=== PATIENT | male | born 1985 | race Caucasian/White ===

== ENCOUNTER 2020-07-05 09:09 | Emergency (ER) | payer OTHER ==
[~2020-07-05] VITALS: Ht 175.3 cm; Wt 98.6 kg
[~2020-07-05 09:09] MED LIST: ANTIVERT25 MG PO; CELEXA20 MG PO; CELEXA40 MG PO; CIPRO500 MG PO; CRUTCH1 EACH; CYCLOBENZAPRINE10 MG PO; CYMBALTA60 MG PO; DOXYCYCLINE HY100 MG PO; FLEXERIL10 MG PO; HYDROCODON-ACE1 EAC8 PO; MULTIVITAMINS1 EAC7 PO; NAPROSYN500 MG PO; NEURONTIN100 MG PO; NORCO 5-325 TA1 EACH PO; OMEGA 3 FISH O1 EACH PO; PROMETHAZINE HC25 M1 PO; TRAMADOL HCL50 MG PO; TRANSDERM-SCOP1 EA TD; VITAMIN E100 UNI2 PO
[2020-07-05] MEDS ORDERED: IBU800 MG PO (10:27)
[2020-07-05] MEDS ORDERED: CEPHALEXIN500 M1 PO (10:27)
== END 2020-07-05 10:36 | disposition home or self-care (01) ==
LOC: ED 09:09
DX: S60.222A Contusion of left hand, initial encounter (principal); L03.114 Cellulitis of left upper limb; F17.200 Nicotine dependence, unspecified, uncomplicated; Z88.8 Allergy status to other drugs, medicaments and biological substances; Z88.5 Allergy status to narcotic agent; Z91.030 Bee allergy status; W26.8XXA Contact with other sharp object(s), not elsewhere classified, initial encounter
CPT/HCPCS: 73130; 99283-25

== ENCOUNTER 2020-10-05 11:50 | Emergency (ER) | payer OTHER ==
[~2020-10-05] VITALS: Ht 175.3 cm; Wt 93.9 kg
[~2020-10-05 11:50] MED LIST changes: +CEPHALEXIN500 M1 PO; +IBU800 MG PO
== END 2020-10-05 15:05 | disposition short-term general hospital (02) ==
LOC: ED 11:50
DX: M54.5 Low back pain (principal); R32 Unspecified urinary incontinence; Z20.822 Contact with and (suspected) exposure to COVID-19; Z87.891 Personal history of nicotine dependence; Z91.030 Bee allergy status; Z88.8 Allergy status to other drugs, medicaments and biological substances; Z88.5 Allergy status to narcotic agent
CPT/HCPCS: 99284; C9803; U0003

== ENCOUNTER 2020-11-21 19:48 | Emergency (ER) | payer OTHER ==
[~2020-11-21] VITALS: Ht 175.3 cm; Wt 90.7 kg
[2020-11-21] MEDS ORDERED: EPIN0.3P IM (21:15)
[2020-11-21] MEDS ORDERED: VENTOLIN HFA18 GM INH (21:15)
[2020-11-21] MEDS ORDERED: PSEUDOEPHEDRINE30 MG PO (21:16)
[2020-11-21] MEDS ORDERED: DICLOFENAC POTA50 MG PO (21:16)
[2020-11-22] MEDS ORDERED: PREDNISONE50 MG PO (00:21)
[2020-11-22] MEDS ORDERED: PEPCID20 MG PO (00:21)
[2020-11-22] MEDS ORDERED: BENADRYL25 MG PO (00:21)
[2020-11-22] MEDS ORDERED: EPIPEN 2-P0.3 MG/0.3 IM (00:21)
== END 2020-11-22 00:29 | disposition home or self-care (01) ==
LOC: ED 19:48
DX: T63.441A Toxic effect of venom of bees, accidental (unintentional), initial encounter (principal); T78.2XXA Anaphylactic shock, unspecified, initial encounter; F17.200 Nicotine dependence, unspecified, uncomplicated; Z88.5 Allergy status to narcotic agent; Z88.8 Allergy status to other drugs, medicaments and biological substances; Z91.030 Bee allergy status; Z79.899 Other long term (current) drug therapy
CPT/HCPCS: 71045; 96374; 96375; 99283-25; J0171; J2930; J7121

== ENCOUNTER 2021-02-11 11:04 | Emergency (ER) | payer OTHER ==
[~2021-02-11] VITALS: Ht 170.2 cm; Wt 95.2 kg
[~2021-02-11 11:04] MED LIST changes: +BENADRYL25 MG PO; +DICLOFENAC POTA50 MG PO; +EPIN0.3P IM; +EPIPEN 2-P0.3 MG/0.3 IM; +PEPCID20 MG PO; +PREDNISONE50 MG PO; +PSEUDOEPHEDRINE30 MG PO; +VENTOLIN HFA18 GM INH
[2021-02-11] MEDS ORDERED: AMOXICILLIN500 MG PO (12:29)
[2021-02-11] MEDS ORDERED: VENTOLIN HFA18 GM INH (12:29)
== END 2021-02-11 12:43 | disposition home or self-care (01) ==
LOC: ED 11:04
DX: H66.92 Otitis media, unspecified, left ear (principal); K08.89 Other specified disorders of teeth and supporting structures; F17.200 Nicotine dependence, unspecified, uncomplicated; Z88.8 Allergy status to other drugs, medicaments and biological substances; Z91.038 Other insect allergy status; Z88.1 Allergy status to other antibiotic agents; Z79.899 Other long term (current) drug therapy
CPT/HCPCS: 99282

== ENCOUNTER 2021-04-01 08:12 | Emergency (ER) | payer OTHER ==
[~2021-04-01] VITALS: Ht 170.2 cm; Wt 95.2 kg
[~2021-04-01 08:12] MED LIST changes: +AMOXICILLIN500 MG PO
== END 2021-04-01 10:16 | disposition home or self-care (01) ==
LOC: ED 08:12
DX: S92.512A Displaced fracture of proximal phalanx of left lesser toe(s), initial encounter for closed fracture (principal); S46.912A Strain of unspecified muscle, fascia and tendon at shoulder and upper arm level, left arm, initial encounter; W10.9XXA Fall (on) (from) unspecified stairs and steps, initial encounter; F17.200 Nicotine dependence, unspecified, uncomplicated; Z91.030 Bee allergy status; Z88.5 Allergy status to narcotic agent; Z88.8 Allergy status to other drugs, medicaments and biological substances; Z88.1 Allergy status to other antibiotic agents; Z79.899 Other long term (current) drug therapy; Z79.52 Long term (current) use of systemic steroids
CPT/HCPCS: 73030; 73630; 99283-25

== ENCOUNTER 2021-07-01 08:50 | Emergency (ER) | payer OTHER ==
[~2021-07-01] VITALS: Ht 170.2 cm; Wt 121.6 kg
[2021-07-01] MEDS ORDERED: IBU600 MG PO (10:23)
== END 2021-07-01 10:40 | disposition home or self-care (01) ==
LOC: ED 08:50
DX: S83.91XA Sprain of unspecified site of right knee, initial encounter (principal); F17.200 Nicotine dependence, unspecified, uncomplicated; Z88.8 Allergy status to other drugs, medicaments and biological substances; Z88.1 Allergy status to other antibiotic agents; Z88.5 Allergy status to narcotic agent; Z91.030 Bee allergy status; Z79.52 Long term (current) use of systemic steroids; Z79.899 Other long term (current) drug therapy; Z91.018 Allergy to other foods; X50.1XXA Overexertion from prolonged static or awkward postures, initial encounter; Y99.0 Civilian activity done for income or pay
CPT/HCPCS: 73560; 99283-25

== ENCOUNTER 2021-07-04 12:53 | Emergency (ER) | payer OTHER ==
[~2021-07-04] VITALS: Ht 170.2 cm; Wt 121.6 kg
[~2021-07-04 12:53] MED LIST changes: +IBU600 MG PO
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
[2021-07-04] MEDS ORDERED: IBUPROFEN600 MG PO (13:51)
[2021-07-04] MEDS ORDERED: PRAZOSIN HCL2 MG PO (13:51)
== END 2021-07-04 15:57 | disposition home or self-care (01) ==
LOC: ED 12:53
DX: M23.91 Unspecified internal derangement of right knee (principal); F17.200 Nicotine dependence, unspecified, uncomplicated; Z88.5 Allergy status to narcotic agent; Z88.8 Allergy status to other drugs, medicaments and biological substances; Z88.1 Allergy status to other antibiotic agents; Z91.030 Bee allergy status; Z79.899 Other long term (current) drug therapy; Z79.52 Long term (current) use of systemic steroids
CPT/HCPCS: 99283

== ENCOUNTER 2021-12-20 10:57 | Emergency (ER) | payer OTHER ==
[~2021-12-20] VITALS: Ht 170.2 cm; Wt 110.7 kg
[~2021-12-20 10:57] MED LIST changes: +IBUPROFEN600 MG PO; +PRAZOSIN HCL2 MG PO
[2021-12-21] MEDS ORDERED: HYDROCODON-ACE1 EA11 PO (14:50)
== END 2021-12-20 12:55 | disposition home or self-care (01) ==
LOC: ED 10:57
DX: S13.9XXA Sprain of joints and ligaments of unspecified parts of neck, initial encounter (principal); S23.3XXA Sprain of ligaments of thoracic spine, initial encounter; T67.9XXA Effect of heat and light, unspecified, initial encounter; W18.30XA Fall on same level, unspecified, initial encounter; F17.200 Nicotine dependence, unspecified, uncomplicated; Z88.8 Allergy status to other drugs, medicaments and biological substances; Z88.5 Allergy status to narcotic agent; Z88.1 Allergy status to other antibiotic agents; Z91.030 Bee allergy status; Z79.899 Other long term (current) drug therapy
CPT/HCPCS: 99283

== ENCOUNTER 2021-12-21 13:17 | Emergency (ER) | payer OTHER ==
[~2021-12-21] VITALS: Ht 170.2 cm; Wt 109.8 kg
--- OUTSIDE RECORDS SUMMARY | 2021-12-21 13:24 | XMS ---
PreManage Notification: ELVA LAI Security Pharmacy Director Events No recent Security Events currently on file CRITERIA MET - [facility] - 2 Visits in 30 Days CARE PROVIDERS Claudia CrowderP-C Nurse Practitioner: Current PHONE: [phone] CARMEN ALEGRE Nurse Practitioner: 05/30/2019-Current PHONE: [phone] Dottie Holley Community Health Worker 06/16/2019-Current PHONE: [phone] Ramez has no Care Guidelines for this patient. E.D. VISIT COUNT (12 MO.) [address] [facility] TOTAL 6 NOTE: Visits indicate total known visits. ED/UCC VISIT TRACKING (12 MO.) 12/21/2021 13:18 [facility] [place] TYPE: Emergency COMPLAINT: - SKIN PROBLEM 12/20/2021 11:00 [facility] [place] TYPE: Emergency COMPLAINT: - FALL 07/04/2021 12:54 [facility] [place] TYPE: Emergency COMPLAINT: - R KNEE PAIN DIAGNOSES: - Bee allergy status - Other emergency services director (current) drug therapy - Nicotine dependence, unspecified, uncomplicated - Pain in right knee - Unspecified internal derangement of right knee - Allergy status to narcotic agent - retirement (current) use of systemic steroids - Allergy status to other antibiotic agents - Allergy status to other drugs, medicaments and biological substances 07/01/2021 08:51 [facility] [place] TYPE: Emergency COMPLAINT: - R KNEE INJURY DIAGNOSES: - Allergy status to narcotic agent - Allergy status to other drugs, medicaments and biological substances - Allergy status to other antibiotic agents - Sprain of unspecified site of right knee, initial encounter - Nicotine dependence, unspecified, uncomplicated - roll finisher (current) use of systemic steroids - Other alf (current) drug therapy - Overexertion from prolonged [...] toe(s), initial encounter for closed fracture - roll finisher (current) use of systemic steroids - Bee allergy status - Allergy status to other antibiotic agents - Other alf (current) drug therapy - Nicotine dependence, unspecified, uncomplicated - Allergy status to narcotic agent - Fall (on) (from) unspecified stairs and steps, initial encounter - Allergy status to other drugs, medicaments and biological substances - Strain of unspecified muscle, fascia and tendon at shoulder and upper arm level, left arm, initial encounter 02/11/2021 11:05 [facility] [place] TYPE: Emergency COMPLAINT: - L EAR PAIN DIAGNOSES: - Allergy status to other antibiotic agents - Otalgia, left ear - Other specified disorders of teeth and supporting structures - Allergy to other foods - roll finisher (current) use of systemic steroids - Allergy status to narcotic agent - Nicotine dependence, unspecified, uncomplicated - Other alf (current) drug therapy - Allergy status to other drugs, medicaments and biological substances - Other insect allergy status - Otitis media, unspecified, left ear INPATIENT VISIT TRACKING (12 MO.) No inpatient visits to display in this time frame [id number]
[2021-12-21] MEDS ORDERED: HYDROCODON-ACE1 EA11 PO (14:50)
== END 2021-12-21 15:25 | disposition home or self-care (01) ==
LOC: ED 13:17
DX: T20.27XA Burn of second degree of neck, initial encounter (principal); T20.20XA Burn of second degree of head, face, and neck, unspecified site, initial encounter; W40.1XXA Explosion of explosive gases, initial encounter; F17.200 Nicotine dependence, unspecified, uncomplicated; Z88.6 Allergy status to analgesic agent; Z88.4 Allergy status to anesthetic agent; Z88.1 Allergy status to other antibiotic agents; Z91.030 Bee allergy status; Z88.8 Allergy status to other drugs, medicaments and biological substances; Z91.018 Allergy to other foods
CPT/HCPCS: A9270

== ENCOUNTER 2022-04-10 17:02 | Emergency (ER) | payer OTHER ==
[~2022-04-10] VITALS: Ht 170.2 cm; Wt 97.8 kg
[~2022-04-10 17:02] MED LIST changes: +HYDROCODON-ACE1 EA11 PO
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
[2022-04-10] MEDS ORDERED: PANTOPRAZOLE SO20 MG PO (18:49)
[2022-04-10] MEDS ORDERED: PRAZOSIN HCL2 MG PO (19:47)
[2022-04-10] MEDS ORDERED: REXULTI4 MG PO (19:47)
== END 2022-04-10 20:00 | disposition home or self-care (01) ==
LOC: ED 17:02
DX: Z76.0 Encounter for issue of repeat prescription (principal); F41.9 Anxiety disorder, unspecified; F31.9 Bipolar disorder, unspecified; F43.10 Post-traumatic stress disorder, unspecified; F17.200 Nicotine dependence, unspecified, uncomplicated; Z91.030 Bee allergy status; Z88.5 Allergy status to narcotic agent; Z88.8 Allergy status to other drugs, medicaments and biological substances; Z88.1 Allergy status to other antibiotic agents; Z79.899 Other long term (current) drug therapy
CPT/HCPCS: 99281

== ENCOUNTER 2022-07-02 06:53 | Emergency (ER) | payer OTHER ==
[~2022-07-02] VITALS: Ht 175.3 cm; Wt 97.8 kg
[~2022-07-02 06:53] MED LIST changes: +PANTOPRAZOLE SO20 MG PO; +REXULTI4 MG PO
[2022-07-02] MEDS ORDERED: TRAZODONE HCL50 MG PO (07:11)
[2022-07-02] MEDS ORDERED: CYCLOBENZAPRINE5 MG PO (07:11)
[2022-07-02] MEDS ORDERED: PENICILLIN V P500 MG PO (07:52)
== END 2022-07-02 08:00 | disposition home or self-care (01) ==
LOC: ED 06:53
DX: K02.9 Dental caries, unspecified (principal); F17.200 Nicotine dependence, unspecified, uncomplicated; Z91.030 Bee allergy status; Z88.5 Allergy status to narcotic agent; Z88.1 Allergy status to other antibiotic agents; Z88.8 Allergy status to other drugs, medicaments and biological substances; Z79.899 Other long term (current) drug therapy
CPT/HCPCS: 99283; A9270

== ENCOUNTER 2024-03-13 10:09 | Emergency (ER) | payer OTHER ==
[~2024-03-13] VITALS: Ht 175.3 cm; Wt 103.1 kg
[~2024-03-13 10:09] MED LIST changes: +CYCLOBENZAPRINE5 MG PO; +HIBICLENS118 ML TOP; +MELOXICAM7.5 MG PO; +PENICILLIN V P500 MG PO; +TRAZODONE HCL50 MG PO
[2024-03-13] MEDS ORDERED: OXYCODONE/APAP 5/325 TAB PO ONE (11:15)
[2024-03-13] MEDS ORDERED: clindamycin HCL 300 MG CAP PO ONE (11:15)
[2024-03-13] MEDS ORDERED: DOXYCYCLINE HYCLATE 100 MG CAP PO ONE (11:15)
[2024-03-13] MEDS ORDERED: PERCOCET 5-3251 EACH PO (13:48)
[2024-03-13] MEDS ORDERED: DOXYCYCLINE HY100 MG PO (13:48)
[2024-03-13] MEDS ORDERED: CLINDAMYCIN HC150 MG PO (13:48)
[2024-03-13 14:08] VITALS: BP 119/76
== END 2024-03-13 14:23 | disposition home or self-care (01) ==
LOC: ED 10:09
DX: L02.414 Cutaneous abscess of left upper limb (principal); F17.200 Nicotine dependence, unspecified, uncomplicated; Z91.030 Bee allergy status; Z88.5 Allergy status to narcotic agent; Z88.8 Allergy status to other drugs, medicaments and biological substances; Z91.018 Allergy to other foods
CPT/HCPCS: 10060; 87070; 87075; 87186; 87205; 99283-25